=== PATIENT | female | born 1995 | race American Indian/Alaskan Native ===

== ENCOUNTER 2019-07-25 15:13 | Emergency (ER) | payer OTHER ==
[2019-07-25 15:29] VITALS: BP 120/75
--- NOTE | 2019-07-25 15:53 | Event Note ---
ED Screening Note Date of service: 07/25/19 Time: 15:44 ED Screening Note: 24 y o female presents to ED stating was dx with syphylis some days ago and was given treatment she is complaining of a lesion/ "breakout to her lip This initial assessment/diagnostic orders/clinical plan/treatment(s) is/are subject to change based on patients health status, clinical progression and re- assessment by fellow clinical providers in the ED. Further treatment and workup at subsequent clinical providers discretion. Patient/guardian urged not to elope from the ED as their condition may be serious if not clinically assessed and managed. Initial orders include: rpr
--- NOTE | 2019-07-25 19:28 | Emergency Department Report ---
ED Rash HPI - HPI Chief Complaint: Skin Rash Stated Complaint: LIGHT HEADED/CRAMPING Time Seen by Provider: 07/25/19 15:33 Suspected Cause: Unknown Rash Symptoms: Yes Blistering (lip blister greater 2 weeks ago no blister now ) Severity: mild Other History: pt states partner was tx's for syphllis, she had lip ulcer several weeks ago now concerned for HSV pending rpr result. pt denies symptoms at this time no rash no ulcer, there is no vaginal discharge no dysuria or frequency pt will be referred to health department for HSV, syphilis, and HIV screening ED Review of Systems ROS: Stated complaint: LIGHT HEADED/CRAMPING Other details as noted in HPI Constitutional: denies: chills, fever Eyes: denies: eye pain, eye discharge, vision change ENT: denies: ear pain, throat pain Respiratory: denies: cough, shortness of breath, wheezing Cardiovascular: denies: chest pain, palpitations Endocrine: no symptoms reported Gastrointestinal: denies: abdominal pain, nausea, diarrhea Genitourinary: as per HPI Musculoskeletal: denies: back pain, joint swelling, arthralgia Skin: denies: rash, lesions Neurological: denies: headache, weakness, paresthesias Psychiatric: denies: anxiety, depression Hematological/Lymphatic: denies: easy bleeding, easy bruising ED Past Medical Hx - Past Medical History Previous Medical History?: No - Surgical History Past Surgical History?: No - Social History Smoking Status: Current Every Day Smoker Substance Use Type: Alcohol, Marijuana Rash Exam - Exam General: Vital signs noted. No distress. Alert and acting appropriately. HEENT: No Periorbital Edema, No Conjuctival Injection, No Chemosis, No Perioral Edema, No Tongue Edema, No Uvular Edema, No Compromised Airway, No Drooling Lungs: Yes Good Air Exchange (Normal Breath Sounds), No Wheezes, No Ronchi, No Stridor, No Cough, No Labored Respirations, No Retractions, No Use of Accessory Muscles, No Other Abnormal Lung Sounds Heart: Yes Regular, No Murmur Skin: No Urticarial Rash, No Maculopapular Rash, No Morbilliform rash, No Bulla(e), No Excoriations, No Weeping, No Tenderness, No Erythema, No Edema, No Encrustations Other: Positive: Abdomen Normal, Neurologic Normal, Musculoskeletal Normal ED Course Vital Signs 07/25/19 15:26 Temperature 98.4 F Pulse Rate 117 H Respiratory 18 Rate Blood Pressure 120/75 O2 Sat by Pulse 100 Oximetry ED Medical Decision Making - Medical Decision Making RPR drawn prior to me seeing this patient will call if positive result pt given referral to [facility] for, STI, hsv, syphilis, and hiv screening Critical care attestation.: If time is entered above; I have spent that time in minutes in the direct care of this critically ill patient, excluding procedure time. ED Disposition Clinical Impression: Rash Disposition: DC-01 TO HOME OR SELFCARE Is pt being admited?: No Does the pt Need Aspirin: No Condition: Stable Additional Instructions: Follow up in 2-3 days for RPR Results, follow with health department for HIV and HSV screening. Referrals: [facility] [Outside] - 3-5 Days Forms: Work/School Release Form(ED) Time of Disposition: 19:34
--- NOTE | 2019-07-26 13:50 | Emergency Department Report ---
Blank Doc - Documentation Documentation: Patient's RPR test came back reactive with an RPR titer 1:8. The patient was cold and this information was given to her over the phone. The patient states she has not yet gone to the health department but she will. The necessity for follow-up at the health department with confirmatory test were explained and patient verbalized understanding
== END 2019-07-25 20:09 | disposition home or self-care (01) ==
LOC: ED 15:13
DX: R21 Rash and other nonspecific skin eruption (principal); F17.200 Nicotine dependence, unspecified, uncomplicated; F12.10 Cannabis abuse, uncomplicated
CPT/HCPCS: 36415; 86592; 86593; 86780